=== PATIENT | male | born 1980 | race Caucasian/White ===

== ENCOUNTER 2024-05-28 09:45 | Emergency (ER) | payer OTHER ==
[2024-05-28 11:05] LABS: Absolute Basophils 0.1 K/uL (0-0.5); Absolute Eosinophils 0.2 K/uL (0-0.5); Absolute Lymphocytes (CBC) 1.9 K/uL (0.7-4.9); Absolute Neutrophil 6.3 K/uL (1.8-8.0); Basophils % 0.8 % (0-1.3); Eosinophils % 2.6 % (0-4.4); Hematocrit 42.6 % (39.6-49.0); Hemoglobin 14.4 g/dL (13.6-17.9); Lymphocytes % 20.1 % (15.3-44.8); MCH 30.3 pg (27.0-35.0); MCHC 33.7 g/dL (32.0-36.0); MCV 90.1 fL (80-100); MPV 10.5 fL (7.6-11.3); Monocytes % 10.9 % (3.3-12.3); Neutrophils % 65.6 % (41.7-73.7); Platelets 146 thou/uL (152-406); RBC Red Blood Cell Count 4.73 M/uL (4.33-5.43); Red Cell Distribution Width 13.2 % (12.1-15.2)
[2024-05-28 11:13] LABS: Albumin 3.4 g/dL (3.4-5.0); Albumin/Globulin Ratio 0.8 (1.1-1.8); Anion Gap 7.6 mEq/L (5.0-15.0); Bilirubin Total 0.6 mg/dL (0.2-1.0); Globulin 4.2 g/dL (2.3-3.5); Potassium 4.6 mEq/L (3.5-5.1); Protein, Total 7.6 g/dL (6.4-8.2); Uric Acid 7.2 mg/dL (3.5-7.2)
[2024-05-28] MEDS ORDERED: NA CHLORIDE 0.9% 1,000 ML ONE (11:27)
[2024-05-28] MEDS ORDERED: FENTANYL CITR 100 MCG/2 ML ONE ×2 (11:27→13:01)
[2024-05-28] MEDS ORDERED: KETOROLAC 30 MG/ML INJ ONE (11:28)
[2024-05-28] MEDS ORDERED: ONDANSETRON 4 MG/2 ML VIAL ONE (11:28)
[2024-05-28] MEDS ORDERED: dexAMETHasone 10 MG/ML VIAL ONE (11:28)
[2024-05-28] MEDS ORDERED: COLCHICINE 0.6 MG TAB ONE (11:29)
--- NOTE | 2024-05-28 12:42 | EDPHYS ---
Physician Documentation [facility] Name: Robinson Espinosa Age: 43 yrs Sex: Male : 1980 Arrival Date: 05/28/2024 Time: 09:45 Bed 19 Private MD: ED Physician Mahendra Hearn HPI: 05/28 12:36 This 43 yrs old Male presents to ER via Ambulatory with complaints of Gout. laura 12:36 The patient presents with decreased range of motion, pain, swelling, tenderness. The laura complaints affect the left ankle. Onset: The symptoms/episode began/occurred 2 day(s) ago. Context: The problem was sustained at an unknown location, The patient can partially bear weight on the affected extremity. Associated signs and symptoms: The patient has no apparent associated signs or symptoms. Modifying factors: The symptoms are alleviated by elevation of extremity, sitting, the symptoms are aggravated by weight bearing, movement, wearing shoes. Severity of symptoms: At their worst the symptoms were moderate, in the emergency department the symptoms are unchanged. The patient has experienced similar episodes in the past, multiple times. Historical: - Allergies: 10:03 Morphine; tm6 10:03 Toradol; tm6 10:03 Ibuprofen; tm6 - PMHx: 10:03 Gout; Hypertensive disorder; Diabetes mellitus; herniated discs; Chronic pain; tm6 - PSHx: 10:03 right knee; back; Cholecystectomy; pain pump -- dilaudid; tm6 - Immunization history:: Flu vaccine is not up to date. - Infectious Disease History:: Denies. - Social history:: Smoking status: Patient denies any tobacco usage or history of. Patient uses street drugs, marijuana, states is medical marijuana, Patient/guardian denies using alcohol. - Family history:: not pertinent. ROS: 12:36 Constitutional: Negative for fever, chills, and weight loss, Eyes: Negative for injury, laura pain, redness, and discharge, ENT: Negative for injury, pain, and discharge, Neck: Negative for injury, pain, and swelling, Cardiovascular: Negative for chest pain, palpitations, and edema, Respiratory: Negative for shortness of breath, cough, wheezing, and pleuritic chest pain, Abdomen/GI: Negative for abdominal pain, nausea, vomiting, diarrhea, and constipation, Back: Negative for injury and pain, : Negative for injury, bleeding, discharge, and swelling, Skin: Negative for injury, rash, and discoloration, Neuro: Negative for headache, weakness, numbness, tingling, and seizure, Psych: Negative for depression, anxiety, suicide ideation, homicidal ideation, and hallucinations, Allergy/Immunology: Negative for hives, rash, and allergies, Endocrine: Negative for neck swelling, polydipsia, polyuria, polyphagia, and marked weight changes, Hematologic/Lymphatic: Negative for swollen nodes, abnormal bleeding, and unusual bruising, 12:36 MS/extremity: Positive for injury or acute deformity, decreased range of motion, erythema, pain, swelling, tenderness, of the left lateral ankle and lateral aspect of left foot, Exam: 12:36 Constitutional: This is a well developed, well nourished patient who is awake, alert, laura and in no acute distress. Head/Face: Normocephalic, atraumatic. Eyes: Pupils equal round and reactive to light, extra-ocular motions intact. Lids and lashes normal. Conjunctiva and sclera are non-icteric and not injected. Cornea within normal limits. Periorbital areas with no swelling, redness, or edema. ENT: Nares patent. No nasal discharge, no septal abnormalities noted. Tympanic membranes are normal and external auditory canals are clear. Oropharynx with no redness, swelling, or masses, exudates, or evidence of obstruction, uvula midline. Mucous membranes moist. Neck: Trachea midline, no thyromegaly or masses palpated, and no cervical lymphadenopathy. Supple, full range of motion without nuchal rigidity, or vertebral point tenderness. No Meningismus. Chest/axilla: Normal chest wall appearance and motion. Nontender with no deformity. No lesions are appreciated. Cardiovascular: Regular rate and rhythm with a normal S1 and S2. No gallops, murmurs, or rubs. Normal PMI, no JVD. No pulse deficits. Respiratory: Lungs have equal breath sounds bilaterally, clear to auscultation and percussion. No rales, rhonchi or wheezes noted. No increased work of breathing, no retractions or nasal flaring. Abdomen/GI: Soft, non-tender, with normal bowel sounds. No distension or tympany. No guarding or rebound. No evidence of tenderness throughout. Back: No spinal tenderness. No costovertebral tenderness. Full range of motion. Male : Normal genitalia with no discharge or lesions. Neuro: Awake and alert, GCS 15, oriented to person, place, time, and situation. Cranial nerves II-XII grossly intact. Motor strength 5/5 in all extremities. Sensory grossly intact. Cerebellar exam normal. Normal gait. Psych: Awake, alert, with orientation to person, place and time. Behavior, mood, and affect are within normal limits. 12:36 Musculoskeletal/extremity: ROM: limited active range of motion, limited passive range of motion, limited active range of motion due to pain, limited passive range of motion due to pain, in the left lateral ankle, Circulation is intact in all extremities. Sensation intact. Compartment Syndrome exam of affected extremity: is normal. DVT Exam: pain, swelling, tenderness, of the left lateral ankle and lateral aspect of left foot, 12:36 Skin: Appearance: Color: normal in color, Temperature: normal temperature, Moisture: normal moisture, petechiae, not noted, ecchymosis, not noted, Vital Signs: 10:00 BP 132 / 83; Pulse 99; Resp 16; Pulse Ox 97% on R/A; db 10:01 BP 138 / 96; Pulse 107; Resp 19; Temp 98.5(O); Pulse Ox 99% on R/A; MAP 106 mmHg; tm6 Weight 101.6 kg; Height 6 ft. 0 in. ; Pain 10/10; 11:30 BP 137 / 91; Pulse 80; Resp 16; Pulse Ox 99% ; db 12:00 BP 119 / 69; Pulse 68; Resp 16; Pulse Ox 97% on R/A; db 13:00 BP 126 / 72; Pulse 66; Resp 16; Pulse Ox 100% ; db 14:02 BP 134 / 83; Pulse 68; Resp 16; Pulse Ox 95% on R/A; db 10:01 Body Mass Index 30.38 (101.60 kg, 182.88 cm) tm6 10:01 Pain Scale: Adult tm6 MDM: 09:51 Medical Screening Exam initiated laura 12:36 Differential diagnosis: fracture, sprain, foreign body, penetrating trauma, arthritis, laura gout, cellulitis. Data reviewed: vital signs, nurses notes, lab test result(s). Consideration of Admission/Observation Escalation of care including admission/observation considered. I considered the following discharge prescriptions or medication management in the emergency department Medications were administered in the Emergency Department. See MAR. Test considered but Not performed: X-ray: no x ray. Historians other than the Patient: pt well informed. Care significantly affected by the following chronic conditions: Diabetes, Hypertension, gout, herniated disc, chronic pain. 05/28 09:53 Order name: CBC with Diff; Complete Time: 12:31 laura 05/28 09:53 Order name: Comprehensive Metabolic Panel; Complete Time: 12:31 laura 05/28 09:53 Order name: Uric Acid; Complete Time: 12:31 [facility] Administered Medications: 11:15 Drug: NS 0.9% IV 1000 ml IV at 1000 ml once; to be given as a bolus over 60 minutes db Route: IV; Rate: 1000 ml; Site: right antecubital; 13:16 Follow up: Response: No adverse reaction; IV Status: Completed infusion; IV Intake: db 1000ml 11:15 Drug: colchicine 0.6 mg 1.2 mg PO once Route: PO; db 13:16 Follow up: Response: No adverse reaction db 11:20 Drug: fentaNYL (PF) IVP 50 mcg IVP once Route: IVP; Site: right antecubital; db 13:17 Follow up: Response: No adverse reaction db 11:25 Drug: Ketorolac IVP 30 mg IVP once Route: IVP; Site: right antecubital; db 13:17 Follow up: Response: No adverse reaction db 11:25 Drug: Ondansetron IVP 4 mg IVP once; over 2 minutes Route: IVP; Site: right antecubital;db 13:17 Follow up: Response: No adverse reaction db 11:28 Drug: Decadron - Dexamethasone IVP 10 mg IVP once Route: IVP; Site: right antecubital; db 13:17 Follow up: Response: No adverse reaction db 12:27 Drug: Colcrys PO 0.6 mg PO once; give 1 hour after 1.2 dose Route: PO; db 13:16 Follow up: Response: No adverse reaction db 12:50 Drug: Hydrocodone-Acetaminophen PO (7.5 mg-325 mg) 1 tabs PO once Route: PO; db 13:16 Follow up: Response: No adverse reaction db 12:59 Drug: fentaNYL (PF) IVP 50 mcg IVP once Route: IVP; Site: right antecubital; db 13:17 Follow up: Response: No adverse reaction db 14:01 Follow up: Response: Pain is decreased db Disposition Summary: 05/28/24 12:41 Discharge Ordered Notes: Location: Home [facility] Problem: new laura Symptoms: have improved laura Condition: Stable laura Diagnosis - Gout, unspecified laura Followup: laura - With: Private Physician - When: 2 - 3 days - Reason: Recheck today's complaints, Continuance of care, Re-evaluation by your physician Discharge Instructions: - Discharge Summary Sheet laura - Gout [facility] - Low-Purine Eating Plan [facility] - Gout, [id number] [facility] Forms: - Medication Reconciliation Form [facility] - Antibiotic Education laura - Prescription Opioid Use laura - Patient Portal Instructions [facility] - Leadership Thank You Letter [facility] Prescriptions: - colchicine 0.6 mg Oral tablet - take 2 tablet ORAL route 2 times per day; 6 tablet; Refills: 0, Product [facility] Selection Permitted - indomethacin 50 mg Oral capsule - take 1 capsule ORAL route 3 times per day administer with food or milk; 30 laura capsule; Refills: 0, Product Selection Permitted - acetaminophen-codeine 300-30 mg Oral tablet - take 2 tablet ORAL route every 6 hours; 20 tablet; Refills: 0, Product laura Selection Permitted - dexamethasone 4 mg Oral tablet - take 1 tablet ORAL route daily; 5 tablet; Refills: 0, Product Selection laura Permitted Signatures: Dispatcher [employer] Mahendra Grady MD MD cha Benton, Danielle, RN RN Ashish Olivia RN RN tm6
--- NOTE | 2024-05-28 12:42 | ER ---
Nurse's Notes [facility] Name: Robinson Espinosa Age: 43 yrs Sex: Male : 1980 Arrival Date: 05/28/2024 Time: 09:45 Bed 19 Private MD: Diagnosis: Gout, unspecified Presentation: 05/28 10:01 Chief complaint: Patient states: having a gout exacerbation from my left foot to my tm6 left knee. Coronavirus screen: Client denies travel out of the [place] in the last 14 days. Ebola Screen: Patient negative for fever greater than or equal to 101.5 degrees Fahrenheit, and additional compatible Ebola Virus Disease symptoms Patient denies exposure to infectious person. Patient denies travel to an Ebola-affected area in the 21 days before illness onset. No symptoms or risks identified at this time. Initial Sepsis Screen: Does the patient meet any 2 criteria? HR > 90 bpm. No. Patient's initial sepsis screen is negative. Does the patient have a suspected source of infection? No. Patient's initial sepsis screen is negative. Risk Assessment: Do you want to hurt yourself or someone else? Patient reports no desire to harm self or others. Onset of symptoms was May 28, 2024. 10:01 Method Of Arrival: Ambulatory tm6 10:01 Acuity: JESUS 3 tm6 Triage Assessment: 10:03 General: Appears uncomfortable, Behavior is cooperative. Pain: Complains of pain in tm6 left foot and left leg Pain currently is 10 out of 10 on a pain scale. EENT: No signs and/or symptoms were reported regarding the EENT system. Neuro: Level of Consciousness is awake, alert, obeys commands, Oriented to person, place, time, situation. Cardiovascular: Patient's skin is warm and dry. Respiratory: Airway is patent Respiratory effort is even, unlabored, Respiratory pattern is regular, symmetrical. GI: No signs and/or symptoms were reported involving the gastrointestinal system. Abdomen is flat, non-distended. : No signs and/or symptoms were reported regarding the genitourinary system. Derm: No signs and/or symptoms reported regarding the dermatologic system. Musculoskeletal: Reports pain in left foot and left leg Pain is 10 out of 10 on a pain scale. Historical: - Allergies: 10:03 Morphine; tm6 10:03 Toradol; tm6 10:03 Ibuprofen; tm6 - PMHx: 10:03 Gout; Hypertensive disorder; Diabetes mellitus; herniated discs; Chronic pain; tm6 - PSHx: 10:03 right knee; back; Cholecystectomy; pain pump -- dilaudid; tm6 - Immunization history:: Flu vaccine is not up to date. - Infectious Disease History:: Denies. - Social history:: Smoking status: Patient denies any tobacco usage or history of. Patient uses street drugs, marijuana, states is medical marijuana, Patient/guardian denies using alcohol. - Family history:: not pertinent. Screenin:40 [facility] ED Fall Risk Assessment (Adult) History of falling in the last 3 months, db including since admission No falls in past 3 months (0 pts) Confusion or Disorientation No (0 pts) Intoxicated or Sedated No (0 pts) Impaired Gait No (0 pts) Mobility Assist Device Used No (0 pt) Altered Elimination No (0 pt) Score/Fall Risk Level 0 - 2 = Low Risk Oriented to surroundings, Maintained a safe environment. Abuse screen: Denies threats or abuse. Denies injuries from another. Nutritional screening: No deficits noted. Tuberculosis screening: No symptoms or risk factors identified. Assessment: 10:15 Reassessment: Patient appears in no apparent distress at this time. Patient and/or db family updated on plan of care and expected duration. Pain level reassessed. Patient is alert, oriented x 3, equal unlabored respirations, skin warm/dry/pink. General: Appears in no apparent distress. comfortable, Behavior is calm, cooperative. Neuro: Level of Consciousness is awake, alert, obeys commands, Oriented to person, place, time, situation. Respiratory: Airway is patent Respiratory effort is even, unlabored, Respiratory pattern is regular, symmetrical. 13:00 Reassessment: PT DC PENDING NARCOTIC HOLD TIME. db 13:17 Reassessment: Patient appears in no apparent distress at this time. Patient and/or db family updated on plan of care and expected duration. Pain level reassessed. Patient is alert, oriented x 3, equal unlabored respirations, skin warm/dry/pink. Patient states feeling better. 14:02 Reassessment: Patient appears in no apparent distress at this time. Patient and/or db family updated on plan of care and expected duration. Pain level reassessed. Patient is alert, oriented x 3, equal unlabored respirations, skin warm/dry/pink. Patient states feeling better. Patient states symptoms have improved. Vital Signs: 10:00 BP 132 / 83; Pulse 99; Resp 16; Pulse Ox 97% on R/A; db 10:01 BP 138 / 96; Pulse 107; Resp 19; Temp 98.5(O); Pulse Ox 99% on R/A; MAP 106 mmHg; tm6 Weight 101.6 kg; Height 6 ft. 0 in. ; Pain 10/10; 11:30 BP 137 / 91; Pulse 80; Resp 16; Pulse Ox 99% ; db 12:00 BP 119 / 69; Pulse 68; Resp 16; Pulse Ox 97% on R/A; db 13:00 BP 126 / 72; Pulse 66; Resp 16; Pulse Ox 100% ; db 14:02 BP 134 / 83; Pulse 68; Resp 16; Pulse Ox 95% on R/A; db 10:01 Body Mass Index 30.38 (101.60 kg, 182.88 cm) tm6 10:01 Pain Scale: Adult tm6 ED Course: 09:50 Patient arrived in ED. al6 09:51 Mahendra Hearn MD is Attending Physician. laura 10:03 Triage completed. tm6 10:03 Arm band placed on right wrist. tm6 10:26 Shira Terrell, FAHEEM is Primary Nurse. db 10:40 Patient has correct armband on for positive identification. Bed in low position. Call db light in reach. Side rails up X 1. Pulse ox on. NIBP on. Warm blanket given. Pillow given. 10:40 Initial lab(s) drawn, by me, sent to lab. Inserted saline lock: 20 gauge in right db forearm, using aseptic technique. Blood collected. Flushed with 10 mL NS. 14:02 Provided Education on: DC AND FOLLOWUP . db 14:02 No provider procedures requiring assistance completed. IV discontinued, intact, db bleeding controlled, No redness/swelling at site. Administered Medications: 11:15 Drug: NS 0.9% IV 1000 ml IV at 1000 ml once; to be given as a bolus over 60 minutes db Route: IV; Rate: 1000 ml; Site: right antecubital; 13:16 Follow up: Response: No adverse reaction; IV Status: Completed infusion; IV Intake: db 1000ml 11:15 Drug: colchicine 0.6 mg 1.2 mg PO once Route: PO; db 13:16 Follow up: Response: No adverse reaction db 11:20 Drug: fentaNYL (PF) IVP 50 mcg IVP once Route: IVP; Site: right antecubital; db 13:17 Follow up: Response: No adverse reaction db 11:25 Drug: Ketorolac IVP 30 mg IVP once Route: IVP; Site: right antecubital; db 13:17 Follow up: Response: No adverse reaction db 11:25 Drug: Ondansetron IVP 4 mg IVP once; over 2 minutes Route: IVP; Site: right antecubital;db 13:17 Follow up: Response: No adverse reaction db 11:28 Drug: Decadron - Dexamethasone IVP 10 mg IVP once Route: IVP; Site: right antecubital; db 13:17 Follow up: Response: No adverse reaction db 12:27 Drug: Colcrys PO 0.6 mg PO once; give 1 hour after 1.2 dose Route: PO; db 13:16 Follow up: Response: No adverse reaction db 12:50 Drug: Hydrocodone-Acetaminophen PO (7.5 mg-325 mg) 1 tabs PO once Route: PO; db 13:16 Follow up: Response: No adverse reaction db 12:59 Drug: fentaNYL (PF) IVP 50 mcg IVP once Route: IVP; Site: right antecubital; db 13:17 Follow up: Response: No adverse reaction db 14:01 Follow up: Response: Pain is decreased db Medication: 10:40 VIS not applicable for this client. db Intake: 13:16 IV: 1000ml; Total: 1000ml. db Outcome: 12:41 Discharge ordered by MD. sanchez 14:02 Discharged to home ambulatory, with friend, chandler 14:02 Condition: stable 14:02 Discharge instructions given to patient, Instructed on discharge instructions, follow up and referral plans. Prescriptions given X 4, 14:03 Patient left the ED. db Signatures: Mahendra Hearn MD MD cha Benton, Danielle RN RN Ashish Olivia RN RN Nadege Loja Corrections: (The following items were deleted from the chart) 14:02 13:00 Reassessment: Patient appears in no apparent distress at this time. Patient db and/or family updated on plan of care and expected duration. Pain level reassessed. Patient is alert, oriented x 3, equal unlabored respirations, skin warm/dry/pink. Patient states feeling better. Patient states symptoms have improved. db
[2024-05-28] MEDS ORDERED: HYDROCODONE/APAP 7.5/325 MG TAB ONE (12:57)
[2024-05-28 14:44] VITALS: TEMP 98.7
[2024-05-28 14:48] VITALS: BP 158/110; O2SAT 98
== END 2024-05-28 14:03 | disposition home or self-care (01) ==
LOC: ER 09:45
DX: M10.9 Gout, unspecified (principal)
CPT/HCPCS: 96361; 85025; 36415; 84550; 80053; 96375; 96374; 99284; J3010 ×2; J1100; J2405; J7030